=== PATIENT | female | born 1960 | race Caucasian/White ===

== ENCOUNTER 2021-08-14 20:43 | Emergency (ER) | payer MEDICAID ==
[~2021-08-14] VITALS: Ht 152.4 cm; Wt 90.7 kg
--- NOTE | 2021-08-14 21:18 | NUR ---
PATIENT WILL WAIT OUTSIDE OF ER UNTIL BED IS AVAILABLE.
--- NOTE | 2021-08-15 00:42 | NUR ---
Patient placed in hallway as requested by Dr Cano due to no beds available in the ER.
--- NOTE | 2021-08-15 01:14 | NUR ---
Dr Cano into eval patient.
--- NOTE | 2021-08-15 01:29 | NUR ---
Patient discharged to home in stable condition with taking patient home. Written and verbal after care instructions given. Patient verbalizes understanding of instructions. Stressed follow up or return to ER for worsening s/s.
[2021-08-15 01:30] VITALS: BP 120/67
== END 2021-08-15 01:31 | disposition home or self-care (01) ==
LOC: ER 20:47
DX: U07.1 COVID-19 (principal); R03.0 Elevated blood-pressure reading, without diagnosis of hypertension
CPT/HCPCS: 71045; A4663